=== PATIENT | male | born 1975 | race African-American/Black ===

== ENCOUNTER 2024-09-16 22:38 | Emergency (ER) | payer MEDICAID ==
[~2024-09-16] VITALS: Ht 175.3 cm; Wt 100.0 kg
[2024-09-16 22:47] VITALS: BP 110/70; PULSE 81; RESP 16; TEMP 98.5; O2SAT 98
[2024-09-16 23:43] LABS: BASOPHILS % 0.9 % (0.0-2.0); EOSINOPHILS % 4.5 % (0.0-5.0); HEMATOCRIT. 43.3 % (42.0-52.0); HEMOGLOBIN. 14.5 g/dL (14.0-18.0); LYMPHOCYTES % 52.6 % (20.0-50.0); MEAN CORPUSCULAR HEMOGLOBIN 30.1 pg (28.0-32.0); MEAN CORPUSCULAR HGB CONC 33.5 g/dL (31.0-37.0); MEAN CORPUSCULAR VOLUME 89.8 fL (80.0-94.0); MEAN PLATELET VOLUME 9.4 fl (7.4-10.4); MONOCYTES % 8.6 % (2.0-8.0); NEUTROPHILS % 33.4 % (40.0-76.0); PLATELET 239 x1000/uL (130-400); RED BLOOD CELL COUNT 4.82 mill/uL (4.7-6.1); RED CELL DISTRIBUTION WIDTH 13.4 % (11.6-14.6); WHITE BLOOD COUNT 6.3 x1000/uL (4.5-11.0)
[2024-09-16 23:49] LABS: CHLORIDE 108 mEq/L (98-107); POTASSIUM 3.5 mEq/L (3.5-5.1); SODIUM 142 mEq/L (136-145)
[2024-09-16 23:50] LABS: CALCIUM 8.9 mg/dL (8.7-10.4); CARBON DIOXIDE 27 mEq/L (21-32)
[2024-09-16 23:54] LABS: PARTIAL THROMBOPLASTIN TIME 25.8 sec (23.4-31.0)
[2024-09-16 23:55] LABS: ETHANOL BLOOD 278 mg/dL (<10); GLUCOSE 111 mg/dL (70-105); UREA NITROGEN BLOOD 10 mg/dL (9-23)
[2024-09-17 00:27] LABS: TROPONIN I HIGH SENSITIVITY < 4 ng/L (3.0-53)
[2024-09-17] MEDS ORDERED: LACTATED RINGERS 1,000 ML IV SCH (00:45)
[2024-09-17] MEDS ORDERED: IOHEXOL-300 100 ML BOTTLE ONE (04:51)
== END 2024-09-17 02:26 | disposition left against medical advice (07) ==
LOC: ER 22:38 → EDBEDREQ 09-17 01:42 → EDBEDREQTM 09-17 01:42 → ER 09-17 02:26
DX: F10.229 Alcohol dependence with intoxication, unspecified (principal); R06.02 Shortness of breath; Z00.00 Encounter for general adult medical examination without abnormal findings; Z59.00 Homelessness unspecified; Z88.0 Allergy status to penicillin; Y90.8 Blood alcohol level of 240 mg/100 ml or more
CPT/HCPCS: 80048; 80320; 83880; 83690; 85025; 85610; 85730; 84484; 36415; 71045; 93005; 99285; 74177; Q9967; 96360; G0480

== ENCOUNTER 2024-09-20 19:06 | Emergency (ER) | payer BC, MEDICAID ==
[~2024-09-20] VITALS: Ht 175.3 cm; Wt 92.8 kg
[2024-09-20 19:23] VITALS: O2SAT 97
[2024-09-20 19:44] VITALS: BP 114/76; PULSE 112; RESP 18; TEMP 98; O2SAT 99
== END 2024-09-20 22:40 | disposition left against medical advice (07) ==
LOC: ER 19:06
DX: R21 Rash and other nonspecific skin eruption (principal); Z53.21 Procedure and treatment not carried out due to patient leaving prior to being seen by health care provider

== ENCOUNTER 2024-09-26 00:39 | Emergency (ER) | payer MEDICAID ==
[~2024-09-26] VITALS: Ht 175.3 cm; Wt 93.0 kg
[2024-09-26 00:47] VITALS: O2SAT 99
[2024-09-26] MEDS: KETOROLAC 15MG/ML VIAL IM ONE (01:47)
[2024-09-26] MEDS ORDERED: LIDO700A15 TP (02:05)
[2024-09-26] MEDS ORDERED: NAPR-1176 MT (02:05)
[2024-09-26] MEDS ORDERED: PERM60CR4 TP (02:05)
[2024-09-26 02:14] VITALS: BP 126/67; PULSE 73; RESP 18; TEMP 36.61404; O2SAT 99
[2024-09-27] MEDS ORDERED: HYDR-4001 MT (19:31)
[2024-09-27] MEDS ORDERED: CLIN-194 MT (19:31)
== END 2024-09-26 02:17 | disposition home or self-care (01) ==
LOC: ER 00:39
DX: B86 Scabies (principal); K02.9 Dental caries, unspecified; Z88.0 Allergy status to penicillin
CPT/HCPCS: 99283; 96372; J1885

== ENCOUNTER 2024-09-27 18:14 | Emergency (ER) | payer MEDICAID ==
[~2024-09-27] VITALS: Ht 175.3 cm; Wt 93.0 kg
[~2024-09-27 18:14] MED LIST: NAPR-1176 MT; PERM60CR4 TP
[2024-09-27 18:46] VITALS: TEMP 98.1; O2SAT 97
[2024-09-27] MEDS ORDERED: HYDR-4001 MT (19:31)
[2024-09-27] MEDS ORDERED: CLIN-194 MT (19:31)
[2024-09-27 19:45] VITALS: BP 119/69; PULSE 92; RESP 18
[2024-09-27] MEDS: HYDROCODONE/ACETAMINOPHEN 5/325MG TABLET PO ONE (19:45)
== END 2024-09-27 21:02 | disposition home or self-care (01) ==
LOC: ER 18:14
DX: K08.89 Other specified disorders of teeth and supporting structures (principal); Z88.0 Allergy status to penicillin; F31.9 Bipolar disorder, unspecified; Z79.1 Long term (current) use of non-steroidal anti-inflammatories (NSAID); Z98.890 Other specified postprocedural states
CPT/HCPCS: 99283

== ENCOUNTER 2024-11-03 19:33 | Emergency (ER) | payer MEDICAID ==
[~2024-11-03] VITALS: Ht 175.3 cm; Wt 87.0 kg
[~2024-11-03 19:33] MED LIST changes: +CLIN-194 MT; +HYDR-4001 MT
[2024-11-03 19:34] VITALS: O2SAT 98
[2024-11-03 19:52] VITALS: BP 146/99; PULSE 78; RESP 18; TEMP 97.8; O2SAT 100
== END 2024-11-03 21:45 | disposition home or self-care (01) ==
LOC: ER 19:33
DX: B34.9 Viral infection, unspecified (principal); R09.81 Nasal congestion; R05.9 Cough, unspecified; Z88.0 Allergy status to penicillin; Z79.1 Long term (current) use of non-steroidal anti-inflammatories (NSAID); Z79.899 Other long term (current) drug therapy
CPT/HCPCS: 99281

== ENCOUNTER 2024-12-30 11:25 | Emergency (ER) | payer BC, MEDICAID ==
[~2024-12-30] VITALS: Ht 182.9 cm; Wt 100.0 kg
[2024-12-30 11:29] VITALS: O2SAT 96
[2024-12-30] MEDS ORDERED: BO1 TP (11:41)
[2024-12-30] MEDS: TETANUS, DIPHTHERIA, PERTUSSIS VAC/PF 0.5ML (>10YR OLD) IM ONE (11:54)
[2024-12-30] MEDS: BACITRACIN ZINC OINT UDPKT TOP ONE (12:04)
[2024-12-30] MEDS: LIDOCAINE HCL/EPINEPHRINE 1%-EPI 1:100,000 20ML VIAL INFIL ONE (12:04)
[2024-12-30 12:35] LABS: HEMATOCRIT. 52.2 % (42.0-52.0); HEMOGLOBIN. 17.2 g/dL (14.0-18.0); MEAN CORPUSCULAR HEMOGLOBIN 29.9 pg (28.0-32.0); MEAN CORPUSCULAR HGB CONC 32.9 g/dL (31.0-37.0); PLATELET 254 x1000/uL (130-400); RED BLOOD CELL COUNT 5.74 mill/uL (4.7-6.1); WHITE BLOOD COUNT 14.2 x1000/uL (4.5-11.0)
[2024-12-30 12:47] LABS: CARBON DIOXIDE 26 mEq/L (21-32); CHLORIDE 103 mEq/L (98-107); POTASSIUM 3.4 mEq/L (3.5-5.1); SODIUM 138 mEq/L (136-145)
[2024-12-30 12:52] LABS: CREATININE 1.3 mg/dL (0.6-1.3); DIFFERENTIAL COMMENT 1; GLUCOSE 98 mg/dL (70-105)
[2024-12-30 12:53] LABS: UREA NITROGEN BLOOD 13 mg/dL (9-23)
[2024-12-30 12:55] LABS: ACETAMINOPHEN < 2 ug/mL (10-30)
[2024-12-30 12:56] LABS: ETHANOL BLOOD < 10 mg/dL (<10)
[2024-12-30 13:35] LABS: PLATELET ESTIMATE NORMAL
[2025-01-01 00:15] VITALS: TEMP 36.6
[2025-01-01 04:22] VITALS: BP 99/54; PULSE 70; RESP 18; O2SAT 100
== END 2025-01-01 11:12 | disposition home or self-care (01) ==
LOC: ER 11:25
DX: S50.812A Abrasion of left forearm, initial encounter (principal); R45.851 Suicidal ideations; Z88.0 Allergy status to penicillin; Z79.1 Long term (current) use of non-steroidal anti-inflammatories (NSAID); Z20.822 Contact with and (suspected) exposure to COVID-19; X58.XXXA Exposure to other specified factors, initial encounter; Y93.89 Activity, other specified; Y92.89 Other specified places as the place of occurrence of the external cause
CPT/HCPCS: 80048; 80307; 80329; 80320; 85025; 36415; 90715; 90471; 99285; 87426; Z7610; G0480

== ENCOUNTER 2025-01-08 21:17 | Emergency (ER) | payer MEDICAID ==
[~2025-01-08] VITALS: Ht 175.3 cm; Wt 97.0 kg
[~2025-01-08 21:17] MED LIST changes: +BO1 TP
[2025-01-08 22:10] VITALS: TEMP 36.7; O2SAT 95
[2025-01-09] MEDS ORDERED: SULF1TAB48 MT (00:09)
[2025-01-09] MEDS ORDERED: IBUP-2029 MT (00:09)
[2025-01-09] MEDS ORDERED: MUPI1OIN4 TP (00:09)
[2025-01-09] MEDS: IBUPROFEN 600MG TABLET PO ONE (00:18)
[2025-01-09 00:19] VITALS: BP 118/83; PULSE 66; RESP 16; O2SAT 99
== END 2025-01-09 00:31 | disposition home or self-care (01) ==
LOC: ER 21:17
DX: L73.9 Follicular disorder, unspecified (principal); Z79.1 Long term (current) use of non-steroidal anti-inflammatories (NSAID); Z79.899 Other long term (current) drug therapy; Z88.0 Allergy status to penicillin
CPT/HCPCS: 99283

== ENCOUNTER 2025-01-16 20:07 | Emergency (ER) | payer MEDICAID, OTHER ==
[~2025-01-16] VITALS: Ht 175.3 cm; Wt 98.0 kg
[~2025-01-16 20:07] MED LIST changes: +IBUP-2029 MT; +MUPI1OIN4 TP; +SULF1TAB48 MT
[2025-01-16 20:13] VITALS: O2SAT 98
[2025-01-16] MEDS ORDERED: SULF1TAB48 MT (23:03)
[2025-01-16 23:20] VITALS: BP 128/79; PULSE 89; RESP 18; TEMP 36.9; O2SAT 98
[2025-01-16 23:26] VITALS: TEMP 98.4
[2025-01-16] MEDS: ACETAMINOPHEN 325MG TABLET PO ONE (23:26)
== END 2025-01-16 23:27 | disposition home or self-care (01) ==
LOC: ER 20:07
DX: L73.9 Follicular disorder, unspecified (principal); Z88.0 Allergy status to penicillin; Z76.0 Encounter for issue of repeat prescription; Z79.899 Other long term (current) drug therapy
CPT/HCPCS: 99283

== ENCOUNTER 2025-03-26 20:06 | Emergency (ER) | payer OTHER ==
[~2025-03-26] VITALS: Ht 172.7 cm; Wt 84.0 kg
[2025-03-26 20:26] VITALS: O2SAT 95
[2025-03-26] MEDS ORDERED: ACET-2708 MT (21:04)
[2025-03-26] MEDS ORDERED: LIDO-53 TP (21:04)
[2025-03-26] MEDS: ACETAMINOPHEN 325MG TABLET PO ONE (21:10)
[2025-03-26] MEDS: LIDOCAINE 5% PATCH TOP SCH (21:11)
[2025-03-26 22:10] VITALS: TEMP 36.6; O2SAT 98
[2025-03-26 22:13] VITALS: BP 147/117; PULSE 84; RESP 18
[2025-03-26] MEDS: KETOROLAC 30MG/ML VIAL IM ONE (22:13)
[2025-03-27] MEDS ORDERED: IBUP-2030 MT (02:30)
== END 2025-03-26 22:18 | disposition home or self-care (01) ==
LOC: ER 20:06
DX: M54.50 Low back pain, unspecified (principal); I10 Essential (primary) hypertension; Z79.1 Long term (current) use of non-steroidal anti-inflammatories (NSAID); Z79.899 Other long term (current) drug therapy; Z88.0 Allergy status to penicillin
CPT/HCPCS: 99283; 96372; J1885

== ENCOUNTER 2025-03-27 02:02 | Emergency (ER) | payer OTHER ==
[~2025-03-27] VITALS: Ht 177.8 cm; Wt 89.0 kg
[~2025-03-27 02:02] MED LIST changes: +ACET-2708 MT; +LIDO-53 TP
[2025-03-27 02:07] VITALS: O2SAT 97
[2025-03-27] MEDS ORDERED: IBUP-2030 MT (02:30)
[2025-03-27] MEDS: DEXAMETHASONE 4MG/ML 1ML VIAL IM ONE (03:09)
[2025-03-27 03:15] VITALS: BP 121/98; PULSE 87; RESP 20; TEMP 36.9; O2SAT 99
== END 2025-03-27 03:16 | disposition home or self-care (01) ==
LOC: ER 02:02
DX: M54.50 Low back pain, unspecified (principal); Z79.899 Other long term (current) drug therapy; Z88.0 Allergy status to penicillin
CPT/HCPCS: 99283; 96372; J1100

== ENCOUNTER 2025-04-13 07:24 | Emergency (ER) | payer OTHER ==
[~2025-04-13 07:24] MED LIST changes: +IBUP-2030 MT
[2025-04-13 07:31] VITALS: PULSE 86; RESP 20; O2SAT 99
== END 2025-04-13 07:45 | disposition left against medical advice (07) ==
LOC: ER 07:24
DX: B86 Scabies (principal); Z53.21 Procedure and treatment not carried out due to patient leaving prior to being seen by health care provider